=== PATIENT | female | born 1995 | race Caucasian/White ===

== ENCOUNTER 2016-09-16 14:45 | Inpatient (IN) | payer OTHER ==
[2016-09-16] VITALS (9 sets, daily range): BP systolic 93–134; BP diastolic 54–66
[~2016-09-16] VITALS: Ht 170.2 cm; Wt 91.0 kg
[2016-09-16] MEDS ORDERED: PRENTAB9 PO (15:09)
[2016-09-16] MEDS ORDERED: LACTATED RINGER'S 1000 ML IV STA (16:34)
[2016-09-16 17:05] LABS: MEAN CORPUSCULAR HEMOGLOBIN 25.9 pg (27.0-33.0); MEAN CORPUSCULAR HGB CONC 31.6 g/dl (32.0-36.5); MEAN CORPUSCULAR VOLUME 81.9 fl (80.0-96.0); WHITE BLOOD COUNT 10.6 K/mm3 (4.0-10.0)
[2016-09-16] MEDS ORDERED: LR 1,000 ML IV SCH (21:04)
[2016-09-16] MEDS ORDERED: OXYTOCIN DRIP 30 UNITS in APPROPRIATE DILUENT 1 EA IV SCH (21:15)
[2016-09-16] MEDS ORDERED: PENICILLIN G POTASSIUM IV 5 MU in D5W MINI-BAG PLUS 100 ML IV STA (21:24)
[2016-09-17] VITALS (33 sets, daily range): BP systolic 103–183; BP diastolic 53–97
[2016-09-17] MEDS ORDERED: PENICILLIN G POTASSIUM IV 2.5 MU in D5W 100 ML IV SCH (01:30)
[2016-09-17] MEDS: PENICILLIN G POTASSIUM IV 2.5 MU in D5W 100 ML IV SCH ×2 (01:44→05:22)
[2016-09-17] MEDS ORDERED: FENTANYL 2MCG/ML ROPIVACAINE 0.2% IN 0.9% NACL 200ML IVBAG As Ordered ONE (05:42)
[2016-09-17] MEDS ORDERED: LACTATED RINGER'S 1000 ML IV PRN (06:00)
[2016-09-17] MEDS ORDERED: ePHEDrine SULFATE 25 MG/5 ML(5MG/ML) SYRINGE IV PRN (06:00)
[2016-09-17] MEDS ORDERED: diphenhydrAMINE INJ 50MG/ML VIAL (J1200) IV PRN (06:00)
[2016-09-17] MEDS ORDERED: NALOXONE INJ 0.4 MG/1 ML VIAL (J2310) IV PRN (06:00)
[2016-09-17] MEDS ORDERED: EPIDURAL COMMENT XX SCH (06:00)
[2016-09-17] MEDS ORDERED: FENTANYL/ROPIVACAINE/NACL BAG 200 ML EPIDURAL SCH (06:00)
[2016-09-17] MEDS ORDERED: REFRIGERATOR IV KEYS XX PRN (06:00)
[2016-09-17] MEDS ORDERED: EPIDURAL/PCA KEYS XX PRN (06:00)
[2016-09-17] MEDS ORDERED: ONDANSETRON 4MG/2ML VIAL (J2405) IV PRN (06:00)
[2016-09-17] MEDS ORDERED: DIBUCAINE 1% OINTMENT 30GM TOP PRN (08:30)
[2016-09-17] MEDS ORDERED: ACETAMINOPHEN TAB 650MG DOSE (2X325MG) PO PRN (08:30)
[2016-09-17] MEDS ORDERED: MEASLES,MUMPS,RUBELLA VACCINE INJ (MMR-II) (90707) SC SCH (08:30)
[2016-09-17] MEDS ORDERED: RHOGAM 300 MCG (1500 IU) INJ (J2790) IM SCH (08:30)
[2016-09-17] MEDS ORDERED: METHYLERGONOVINE MALEATE 0.2 MG TAB PO PRN (08:30)
[2016-09-17] MEDS ORDERED: DOCUSATE SODIUM 100 MG CAP PO PRN (08:30)
--- NOTE | 2016-09-17 08:47 | IPN ---
DATE: 09/17/2016 The patient has requested a circumcision of male . After discussing the risks and benefits of circumcision, medical to nonmedical indications, the penile block and aftercare, they expressed understanding, signed and witnessed the consent form. We answered all questions. We await the clearance by the clinical biochemical geneticist.
[2016-09-17] MEDS: PRENATAL VITAMIN TAB PO SCH (09:00)
[2016-09-17] MEDS: IBUPROFEN 800 MG TAB PO PRN (16:13)
[2016-09-18] MEDS: IBUPROFEN 800 MG TAB PO PRN (01:05)
[2016-09-18 06:00] VITALS: BP 99/48
[2016-09-18] MEDS: PRENATAL VITAMIN TAB PO SCH (09:00)
[2016-09-18] MEDS ORDERED: DIBU1OIN TOP (13:46)
[2016-09-18] MEDS ORDERED: ACET50TA PO (13:47)
[2016-09-18] MEDS ORDERED: COLA100C3 PO (13:48)
[2016-09-18] MEDS ORDERED: IBUP600T26 PO (13:49)
--- NOTE | 2016-09-19 13:05 | DSES ---
DATE OF ADMISSION: 09/16/2016 DATE OF DISCHARGE: 09/18/2016 This lady is a 20-year-old, 2, now para 2, admitted for induction of labor at 38 and 5 weeks of gestation. She had a spontaneous vaginal delivery, live male , 8 pounds 1 ounce, score of 9 and 9 at one and five minutes, respectively. She did sustain a partial abruption. Her hemoglobin 9.3, hematocrit 29.4 and platelets were 238. Her vital signs on discharge, her blood pressure is 99/48, respirations 18, pulse 81, temperature 97.9. We discussed phlebitis, cystitis, mastitis, endometritis and cellulitis, diet, exercise, pain management, perineal, breast and wound care. We are planning on giving her medications upon delivery. Her son was circumcised and is ready to go. She was GBS positive, treated in time, had an intact perineum. The patient has a 6-week checkup. All questions were answered, and the patient was discharged in good condition.
== END 2016-09-18 14:45 | disposition home or self-care (01) | DRG 774 ==
LOC: M LDO 14:45 → M LDI 14:48 → M OBS 09-17 09:53
PROVIDERS: ADMIT Obstetrics & Gynecology; ATTEND Obstetrics & Gynecology
PROC: 3E033VJ Introduction of Other Hormone into Peripheral Vein, Percutaneous Approach (ICD-10-PCS; 2016-09-16)
PROC: 10E0XZZ Delivery of Products of Conception, External Approach (ICD-10-PCS; principal; 2016-09-17)
DX: O45.93 Premature separation of placenta, unspecified, third trimester (principal); Z37.0 Single live birth; Z3A.38 38 weeks gestation of pregnancy; O99.820 Streptococcus B carrier state complicating pregnancy

== ENCOUNTER → 2016-10-19 | Outpatient (REF) | payer OTHER ==
[~2016-10-19] MED LIST: ACET50TA PO; COLA100C3 PO; DIBU1OIN TOP; IBUP600T26 PO; PRENTAB9 PO
== END ==
LOC: M SFHCLERA 13:12
PROVIDERS: ATTEND Physician Assistant
DX: J02.9 Acute pharyngitis, unspecified (principal); N12 Tubulo-interstitial nephritis, not specified as acute or chronic